=== PATIENT | female | born 1995 | race Hispanic/Latino ===

== ENCOUNTER 2022-09-16 19:30 | Inpatient (IN) | payer MEDICAID, OTHER, SELFPAY ==
[~2022-09-16 19:30] MED LIST: Bupivacaine/Epinephrine 0.25% 30 ML VIAL ONE; Terbutaline Sulfate 1 MG/ML VIAL ONE
[2022-09-16] MEDS ORDERED: Promethazine HCl 25 MG/ML VIAL IM PRN (23:32)
[2022-09-16] MEDS ORDERED: Carboprost 250 MCG/ML AMP IM PRN (23:32)
[2022-09-16] MEDS ORDERED: Acetaminophen 500 MG TAB PO PRN (23:32)
[2022-09-16] MEDS ORDERED: Methylergonovine 0.2 MG/ML VIAL IM PRN (23:32)
[2022-09-16] MEDS ORDERED: Tranexamic Acid 1,000 MG in Sodium Chloride 0.9% 250 ML 250 ML IVPB PRN (23:32)
[2022-09-16] MEDS ORDERED: Ibuprofen 800 MG TAB PO PRN (23:32)
[2022-09-16] MEDS ORDERED: Butorphanol Tartrate 1 MG/ML VIAL SLOW IVP PRN (23:32)
[2022-09-16] MEDS ORDERED: HYDROcodone/Acetaminophen 5/325 mg Tablet PO PRN (23:32)
[2022-09-16] MEDS ORDERED: Ondansetron PF 4 MG/2 ML Vial IVP PRN (23:32)
[2022-09-16] MEDS ORDERED: Misoprostol 200 MCG TAB PR PRN (23:32)
[2022-09-16] MEDS ORDERED: Lidocaine 1% (PF) 30 ML VIAL SC PRN (23:32)
[2022-09-16] MEDS ORDERED: Diphenoxylate HCl/Atropine Tablet PO PRN (23:32)
[2022-09-16] MEDS ORDERED: hydrALAZINE 20 MG/ML VIAL SLOW IVP PRN (23:32)
[2022-09-17 02:34] VITALS: BMI 35.6
[2022-09-17] MEDS ORDERED: NS w/ Oxytocin 30 units 500 ML IV SCH ×2 (03:00)
[2022-09-17] MEDS ORDERED: Penicillin G Potassium 5 MILL.UNITS in Sodium Chloride 0.9% 100 ML IVPB SCH (03:00)
[2022-09-17] MEDS: Misoprostol 100 MCG TAB VAG SCH ×3 (03:28→15:28)
[2022-09-17] MEDS: Lactated Ringer's 1,000 ML IV SCH ×2 (03:29→15:29)
[2022-09-17 04:01] LABS: Hemoglobin 11.2 g/dL (12.0-15.5); Mean Corpuscular HGB CONC 34.1 g/dL (32.0-36.0); Mean Corpuscular Hemoglobin 28.9 pg (27.0-33.0); Mean Corpuscular Volume 84.8 fl (81.6-98.3); Mean Platelet Volume 10.8 fl (7.4-10.4); Platelet Count 245 10x3/uL (150-450); RBC Distribution Width 13.6 % (11.5-14.5); Red Blood Cell (RBC) Count 3.87 10x6/uL (3.90-5.03); White Blood Cell (WBC) Count 8.5 10x3/uL (3.5-10.5)
[2022-09-17 04:19] LABS: SARS-CoV-2 NAA Rapid Test Not Detected (NotDetected)
[2022-09-17 04:26] LABS: Syphilis Antibody Nonreactive (Nonreactive); Syphilis Antibody Index 0.03 S/CO (<1.00 Non-Reactive)
[2022-09-17 04:27] LABS: HBSAg Index 0.13 S/CO (0-0.99); Hep B Surf Ag Non-Reactive S/CO (NonReactive)
[2022-09-17] MEDS: Penicillin G 2.5 MILL.units 2.5 MILL.UNITS in Premix Bag 1 BAG IVPB SCH ×3 (07:36→15:29)
[2022-09-17] MEDS ORDERED: Fentanyl 2 mcg/Bup 0.1% Cadd 100 ML ONE (07:58)
[2022-09-17] MEDS ORDERED: Acetaminophen 325 MG TAB PO PRN (10:44)
[2022-09-17] MEDS ORDERED: ePHEDrine Sulfate 50 MG/10 ML VIAL SLOW IVP PRN (10:44)
[2022-09-17] MEDS ORDERED: Ondansetron PF 4 MG/2 ML Vial IVP PRN ×2 (10:44→15:20)
[2022-09-17] MEDS ORDERED: diphenhydrAMINE 50 MG/ML VIAL IVP PRN (10:44)
[2022-09-17] MEDS ORDERED: Naloxone HCl 0.4 mg/ml Vial IVP PRN ×2 (10:44)
[2022-09-17] MEDS ORDERED: Moisturizing Cream (Eucerin) 113 GM JAR TOP PRN (10:44)
[2022-09-17] MEDS ORDERED: Promethazine HCl 25 MG/ML VIAL IM PRN ×2 (10:44→15:20)
[2022-09-17] MEDS ORDERED: Lactated Ringer's 500 ML IV PRN (10:44)
[2022-09-17] MEDS ORDERED: Communication Order-Pharmacy FS SCH (10:45)
[2022-09-17] MEDS ORDERED: Fentanyl 2 mcg/Bupivacaine 0.1% Cassette 100 ML EPIDURAL SCH (10:45)
[2022-09-17] MEDS ORDERED: Bisacodyl 10 MG SUPP PR PRN (15:20)
[2022-09-17] MEDS ORDERED: Milk Of Magnesia 30 ML UDCUP PO PRN (15:20)
[2022-09-17] MEDS ORDERED: Boostrix 0.5 ML (Tdap) VIAL (>/=7 yrs of age) IM ONE (15:20)
[2022-09-17] MEDS ORDERED: Lanolin Ointment 7 GM TUBE TOP PRN (15:20)
[2022-09-17] MEDS ORDERED: Benzocaine-Menthol 82.5 ML CAN TOP PRN (15:20)
[2022-09-17] MEDS ORDERED: diphenhydrAMINE 25 MG CAP PO PRN (15:20)
[2022-09-17] MEDS ORDERED: hydrALAZINE 20 MG/ML VIAL SLOW IVP PRN (15:20)
[2022-09-17] MEDS: Ferrous Sulfate 325 MG TAB PO SCH (17:06)
[2022-09-17] MEDS: Ibuprofen 800 MG TAB PO SCH (17:09)
[2022-09-17] MEDS: Docusate 100 MG CAP PO SCH (21:14)
[2022-09-18] MEDS: Ibuprofen 800 MG TAB PO SCH ×2 (00:05→09:27)
[2022-09-18] MEDS: HYDROcodone/Acetaminophen 5/325 mg Tablet PO PRN ×2 (04:16→13:55)
[2022-09-18] MEDS: Ferrous Sulfate 325 MG TAB PO SCH (07:35)
[2022-09-18] MEDS: Docusate 100 MG CAP PO SCH (08:19)
[2022-09-18] MEDS ORDERED: Prenatal Vitamin 1 TAB PO SCH (09:00)
[2022-09-18 11:39] VITALS: BP 117/62; TEMP 98.4
== END 2022-09-18 16:58 | disposition home or self-care (01) | DRG 807 ==
LOC: CSHLD 23:19 → CSHPED 09-17 15:18
PROVIDERS: ADMIT Family Medicine; ATTEND Family Medicine
PROC: 10E0XZZ Delivery of Products of Conception, External Approach (ICD-10-PCS; principal; 2022-09-17)
PROC: 0KQM0ZZ Repair Perineum Muscle, Open Approach (ICD-10-PCS; 2022-09-17)
DX: O99.824 Streptococcus B carrier state complicating childbirth (principal); Z37.0 Single live birth; Z3A.39 39 weeks gestation of pregnancy; O70.1 Second degree perineal laceration during delivery; Z20.822 Contact with and (suspected) exposure to COVID-19
CPT/HCPCS: 36415; 51702; 85027; 86780; 86850; 86900; 86901; 87340; J2540; J2590; J3105; J3490; J7120; U0002

== ENCOUNTER 2024-02-24 15:08 | Day surgery (SDC) | payer OTHER ==
[2024-02-24] MEDS ORDERED: hydrALAZINE 20 MG/ML VIAL SLOW IVP PRN (15:47)
[2024-02-24 15:51] VITALS: BMI 38.4
[2024-02-24 17:10] LABS: #Basophils 0.03 10x3/uL (0.0-0.2); #Eosinphils 0.03 10x3/uL (0.0-0.5); #Monocytes 0.43 10x3/uL (0.0-1.1); #Neutrophils 5.14 10x3/uL (1.5-8.4); %Basophils 0.4 % (0.0-2.0); %Eosinophils 0.4 % (0.0-6.0); %Lymphocytes 17.7 % (18.0-47.0); %Monocytes 6.2 % (0.0-10.0); %Neutrophils 73.9 % (40.0-75.0); Hematocrit 34.3 % (34.9-44.5); Hemoglobin 12.1 g/dL (12.0-15.5); Mean Corpuscular HGB CONC 35.3 g/dL (32.0-36.0); Mean Corpuscular Hemoglobin 31.1 pg (27.0-33.0); Mean Corpuscular Volume 88.2 fL (81.6-98.3); Mean Platelet Volume 10.7 fL (7.4-10.4); Platelet Count 216 10x3/uL (150-450); RBC Distribution Width 13.2 % (11.5-14.5); Red Blood Cell (RBC) Count 3.89 10x6/uL (3.90-5.03)
[2024-02-24 17:48] LABS: HIV (1/2) Antibody/Antigen Non-Reactive (NonReactive); HIV 1/2 INDEX 0.05 S/CO (<1.00)
[2024-02-24 17:50] LABS: Syphilis Antibody Nonreactive (Nonreactive); Syphilis Antibody Index 0.05 S/CO (<1.00 Non-Reactive)
== END 2024-02-24 17:10 | disposition home or self-care (01) ==
LOC: CSHLD/OP 15:08
PROVIDERS: ATTEND Family Medicine
DX: O36.8330 Maternal care for abnormalities of the fetal heart rate or rhythm, third trimester, not applicable or unspecified (principal); O23.43 Unspecified infection of urinary tract in pregnancy, third trimester; N39.0 Urinary tract infection, site not specified; O99.213 Obesity complicating pregnancy, third trimester; Z79.899 Other long term (current) drug therapy; Z3A.37 37 weeks gestation of pregnancy
CPT/HCPCS: 36415; 85025; 86780; 87389; 99282